=== PATIENT | male | born 1965 | race Caucasian/White ===

== ENCOUNTER → 2018-09-24 | Outpatient (CLI) | payer SELFPAY ==
[~2018-09-24] MED LIST: ALLOPURINOL PO; BP MED PO; EXEN2VIA SQ; GABA600T7 PO; GADOBUTROL 15 MMOL/15 ML VIAL ONE; GLIM4TAB2 PO; METF10002 PO; OXYC5CAP2 PO; VITA150T PO
== END | disposition home or self-care (01) ==
LOC: RAD 15:39
PROVIDERS: ATTEND Psychiatry & Neurology Neurology
DX: H47.012 Ischemic optic neuropathy, left eye (principal); G93.2 Benign intracranial hypertension; H47.11 Papilledema associated with increased intracranial pressure
CPT/HCPCS: 70543; 70546; 70553; A9585

== ENCOUNTER 2018-09-26 10:59 | Day surgery (SDC) | payer BC, OTHER ==
[~2018-09-26] VITALS: Ht 188 cm; Wt 131.5 kg
[~2018-09-26 10:59] MED LIST changes: -GADOBUTROL 15 MMOL/15 ML VIAL ONE
[2018-09-26 11:35] VITALS: BP 123/77
[2018-09-26] MEDS ORDERED: SODIUM CHLORIDE 0.9% 1,000 ML IV SCH (11:50)
[2018-09-26 14:54] LABS: BASOPHILS # (AUTO) 0.03 x10^3/uL (0-0.1); BASOPHILS % (AUTO) 0 % (0-1); EOSINOPHILS # (AUTO) 0.17 x10^3/uL (0-0.4); EOSINOPHILS % (AUTO) 2 % (1-7); LYMPHOCYTES % (AUTO) 24 % (22-44); MD NO; MEAN CORPUSCULAR HEMOGLOBIN 30.7 pg (27.5-34.5); MEAN CORPUSCULAR HGB CONC 33.8 g/dL (33.2-36.2); MEAN CORPUSCULAR VOLUME 90.9 fL (81-97); MEAN PLATELET VOLUME 8.3 fL (7.4-10.4); MONOCYTES # (AUTO) 0.53 x10^3/uL (0.2-0.8); MONOCYTES % (AUTO) 7 % (2-9); NEUTROPHILS # (AUTO) 5.38 x10^3/uL (1.8-6.8); NEUTROPHILS % (AUTO) 67 % (42-75); PLATELET COUNT 232 x10^3/uL (130-400); RED BLOOD COUNT 4.98 x10^6/uL (4.38-5.82)
[2018-09-26 15:03] LABS: ALANINE AMINOTRANSFERASE 24 U/L (12-78); ALBUMIN 3.7 g/dL (3.4-5.0); ANION GAP 5 mmol/L (5-15); CHLORIDE 107 mmol/L (98-107)
[2018-09-26 15:06] LABS: ALKALINE PHOSPHATASE 41 U/L (45-117); BILIRUBIN,TOTAL 0.8 mg/dL (0.2-1.0); TOTAL PROTEIN 6.9 g/dL (6.4-8.2)
[2018-09-26 15:21] LABS: GLUCOSE, CSF 67 mg/dL (40-80); TOTAL PROTEIN,CSF 55 mg/dL (15-45)
== END 2018-09-26 17:10 | disposition home or self-care (01) ==
LOC: OUT 10:59
PROVIDERS: ATTEND Psychiatry & Neurology Neurology
DX: H47.10 Unspecified papilledema (principal); E11.9 Type 2 diabetes mellitus without complications; Z96.652 Presence of left artificial knee joint; Z72.89 Other problems related to lifestyle; Z79.84 Long term (current) use of oral hypoglycemic drugs
CPT/HCPCS: 36415; 62270; 77003; 80053; 82040; 82042; 82164; 82784; 82945; 83873; 84157; 85025; 86592; 86645; 86695; 86696; 86762; 86777; 86778; 87070; 87075; 87102; 87116; 87205; 87206; 87899; 88108; 89051; J7030